=== PATIENT | female | born 1950 | race American Indian/Alaskan Native ===

== ENCOUNTER 2016-10-16 14:03 | Inpatient (IN) | payer MEDICARE ==
[2016-10-16 15:50] LABS: Basophils % (Auto) 0.3 % (0.0-1.8); Eosinophils % (Auto) 0.1 % (0.0-4.3); Hematocrit 39.7 % (30.3-42.9); Hemoglobin 12.9 gm/dl (10.1-14.3); Mean Corpuscular HGB Conc 32 % (30-34); Mean Corpuscular Hemoglobin 30 pg (28-32); Mean Corpuscular Volume 92 fl (79-97); Platelet Count 235 K/mm3 (140-440); Red Blood Count 4.34 M/mm3 (3.65-5.03); Red Cell Distribution Width 14.6 % (13.2-15.2); White Blood Count 6.4 K/mm3 (4.5-11.0)
[2016-10-16 15:57] LABS: BUN/Creatinine Ratio 7.36; Calcium 9.5 mg/dL (8.4-10.2); Chloride 91.9 mmol/L (98-107); Potassium 3.2 mmol/L (3.6-5.0)
[2016-10-16] MEDS ORDERED: NACL 0.9% 500 ML 500 ML IV ONE (16:47)
[2016-10-16] MEDS ORDERED: NACL 0.9% 1000 ML 1,000 ML IV ONE (16:48)
--- NOTE | 2016-10-16 16:54 | Emergency Department Report ---
HPI - General Chief Complaint: Recheck/Abnormal Lab/Rx Time Seen by Provider: 10/16/16 16:37 - HPI HPI: Room 23 The patient is 66-year-old female presenting with chief complaint of acute renal failure. The patient states she had routine labs performed yesterday by her primary physician received a call today stating she was in acute renal failure and that she should come to the ED. The patient admits to episodes of diarrhea 2 days ago. The patient states she had 10-12 episodes of loose stools 2 days ago. Patient denies abdominal pain, shortness of breath or chest pain. Patient missed one episode of nausea and vomiting. Patient denies any history of fever. The patient states she has noticed decreased urinary output over the past 2 days. When asked how she is feeling currently the patient replies she feels "okay." Patient had labs drawn 10/15/2016 the revealed a creatinine of 4.02 mg/dL Location: [see above] Duration: [see above] Quality: [see above] Severity: [see above] Modifying factors: [see above] Context: [see above] Mode of transportation: Unknown ED Past Medical Hx - Past Medical History Hx Hypertension: Yes Additional medical history: hi cholest rheumatic fever - Surgical History Hx Breast Surgery: Yes (partial mastectomy bilat) Additional Surgical History: hysterectomy - Family History Family history: no significant - Social History Smoking Status: Never Smoker Substance Use Type: Alcohol (occasional) - Medications Home Medications: Home Medications Medication Instructions Recorded Confirmed Last Taken Type Anastrozole (Nf) [Arimidex (Nf)] 1 mg PO DAILY 12/01/13 10/16/16 12/01/13 History [place]-3S/Dha/Epa/Fish Oil [Fish 1 each PO DAILY 12/01/13 10/16/16 12/01/13 History Oil EC 1,200 mg Softgel] Simvastatin 20 mg PO QDAY 12/01/13 10/16/16 12/01/13 History Valsartan [Diovan] 80 mg PO DAILY 12/01/13 10/16/16 12/01/13 History ED Review of Systems ROS: Stated complaint: BLOOD WORK / SENT FROM PHYS Other details as noted in HPI Comment: All other systems reviewed and negative Constitutional: denies: chills, fever Eyes: denies: eye pain, eye discharge, vision change ENT: denies: ear pain, throat pain Respiratory: denies: cough, shortness of breath, wheezing Cardiovascular: denies: chest pain, palpitations Endocrine: no symptoms reported Gastrointestinal: diarrhea. denies: abdominal pain, nausea Genitourinary: denies: urgency, dysuria, discharge Musculoskeletal: denies: back pain, joint swelling, arthralgia Skin: denies: rash, lesions Neurological: denies: headache, weakness, paresthesias Psychiatric: denies: anxiety, depression Hematological/Lymphatic: denies: easy bleeding, easy bruising Physical Exam - Physical Exam Vital Signs: Vital Signs 10/16/16 10/16/16 10/16/16 14:43 15:03 15:09 Temperature 98.4 F Pulse Rate 104 H 91 H Respiratory 18 16 17 Rate Blood Pressure 83/53 Blood Pressure [Right] O2 Sat by Pulse 99 99 100 Oximetry 10/16/16 15:10 Temperature 98.0 F Pulse Rate 85 Respiratory 17 Rate Blood Pressure Blood Pressure 99/61 [Right] O2 Sat by Pulse 100 Oximetry Physical Exam: GENERAL: The patient is well-developed well-nourished female lying on stretcher not appear to be in acute distress. [] HEENT: Normocephalic. Atraumatic. Extraocular motions are intact. Patient has moist mucous membranes. NECK: Supple. Trachea midline CHEST/LUNGS: Clear to auscultation. There is no respiratory distress noted. HEART/CARDIOVASCULAR: Regular. There is no tachycardia. There is no gallop rub or murmur. ABDOMEN: Abdomen is soft, nontender. Patient has normal bowel sounds. There is no abdominal distention. SKIN: There is no rash. There is no edema. There is no diaphoresis. NEURO: The patient is awake, alert, and oriented. The patient is cooperative. The patient has normal speech MUSCULOSKELETAL: There is no evidence of acute injury. ED Course Vital Signs 10/16/16 10/16/16 10/16/16 14:43 15:03 15:09 Temperature 98.4 F Pulse Rate 104 H 91 H Respiratory 18 16 17 Rate Blood Pressure 83/53 Blood Pressure [Right] O2 Sat by Pulse 99 99 100 Oximetry 10/16/16 15:10 Temperature 98.0 F Pulse Rate 85 Respiratory 17 Rate Blood Pressure Blood Pressure 99/61 [Right] O2 Sat by Pulse 100 Oximetry - Reevaluation(s) Reevaluation #1: 10/16/16 17:37 Blood pressure is improved to 114/68 after 1 L of normal saline ED Medical Decision Making - Lab Data Result diagrams: 10/16/16 15:19 10/16/16 15:19 Laboratory Tests 10/16/16 10/16/16 15:19 15:19 WBC 6.4 RBC 4.34 Hgb 12.9 Hct 39.7 MCV 92 MCH 30 MCHC 32 RDW 14.6 Plt Count 235 Lymph % (Auto) 22.5 [place] % (Auto) 13.1 H Eos % (Auto) 0.1 Baso % (Auto) 0.3 Lymph # 1.4 [place] # 0.8 Eos # 0.0 Baso # 0.0 Seg Neutrophils % 64.0 Seg Neutrophils # 4.1 Sodium 133 L Potassium 3.2 L Chloride 91.9 L Carbon Dioxide 19 L Anion Gap 25 BUN 42 H Creatinine 5.7 H Estimated GFR 9 BUN/Creatinine Ratio 7.36 Glucose 99 Calcium 9.5 Troponin T 0.011 - Radiology Data Radiology results: report reviewed (CT abdomen and pelvis), image reviewed (CT abdomen and pelvis) CT abdomen and pelvis (read by radiologist)-no specific sclerotic focus in the medial left iliac wing may be a bone island. The differential includes a blastic lesion given margins are regular. Small hiatal hernia and otherwise normal-appearing stomach. Slight ascending colon diverticulosis. - Differential Diagnosis acute renal failure, enteritis, dehydration Critical care attestation.: If time is entered above; I have spent that time in minutes in the direct care of this critically ill patient, excluding procedure time. ED Disposition Clinical Impression: Acute renal failure, Diarrhea, Dehydration Disposition: OP ADMITTED IP TO THIS HOSP Is pt being admited?: Yes Does the pt Need Aspirin: No Condition: Serious Referrals: PRIMARY CARE, [Primary Care Provider] - 3-5 Days Time of Disposition: 17:39 (hospitalist paged)
--- NOTE | 2016-10-16 17:34 | Cat Scan Report ---
FINAL REPORT EXAM: CT ABDOMEN PELVIS WO CON HISTORY: acute renal failure, diarrhea TECHNIQUE: CT examination of the ABDOMEN without contrast CT exanimation of the PELVIS without contrast PRIORS: None. FINDINGS: 12 mm irregularly marginated nonspecific small sclerotic focus in the left medial iliac wing may be a bone island. The differential includes a blastic lesion. Normal noncontrast appearance of the liver, gallbladder, adrenals, pancreas, and spleen. Normal caliber abdominal aorta with minimal calcified atherosclerotic plaque. Normal caliber IVC. Normal-appearing kidneys and ureters. No evidence of renal mass. No renal calculus, hydronephrosis, or ureteral calculus. Small hiatal hernia. Otherwise normal appearing stomach and duodenum. No small bowel distention in the abdomen and pelvis. No pelvic free fluid. Uterus not visualized. Normal-appearing urinary bladder and adnexa. No definite rectal or sigmoid colon abnormality. No gross ascites, free air, or colonic distention. Normal-appearing cecum, terminal ileum, and appendix. Slight ascending colon diverticulosis IMPRESSION: Nonspecific sclerotic focus in the medial left iliac wing may be a bone island. The differential includes a blastic lesion given margins are irregular Small hiatal hernia in otherwise normal-appearing stomach Slight ascending colon diverticulosis
--- NOTE | 2016-10-16 17:50 | Admit Criteria Form ---
Admission Criteria Documentation: RENAL FAILURE, ACUTE Clinical Indications for Admission to Inpatient Care ( Place 'X' for any and all applicable criteria): Admission is indicated for ALL (if I & II) or III of the following [A](2)(3)(4)( 5)(6)(7): [X]I. Acute renal failure as indicated by ANY ONE of the following: [X]a) A 3-fold rise in serum creatinine from baseline []b) Serum creatinine greater than 4 mg/dL (354 micromoles/L) with an acute rise greater than 0.5 mg/dL (44.2 micromoles/L) [ ]c) Reduction of more than 75% in estimated glomerular filtration rate from baseline [ ]d) Estimated glomerular filtration rate less than 35 mL/min/1.73m2 (0.59mL/sec/1.73m2)in a child up to 18 years of age [ ]e) Anuria indicated by ALL of the following: [ ]i) Adequate volume status [ ]ii) Cessation of urine output indicated by ANY ONE of the following: [ ]1) Urine output less than 0.3 mL/kg/hr for 24 hours [ ]2) Anuria (urine output less than 0.1 mL/kg/ hr) for 12 hours [ ] II. Renal failure cannot be managed in an outpatient setting or observational care setting as indicating by ANY ONE of the following: [ ]a) Altered mental status that is severe or persistent [ ]b) Volume overload or Respiratory distress (eg, clinically significant pulmonary edema) that is severe or persistent [ ]c) Cardiac arrhythmias of immediate concern [ ]d) Hemodynamic instability [ ]e) Clinically significant electrolyte abnormality that requires inpatient care (eg, hyperkalemia with severe ECG findings)[B] [ ]f) Clinically significant metabolic abnormality (eg, acidosis) that is severe or persistent [ ]g) Acute treatment of renal failure (eg, renal replacement therapy) not feasible or appropriate in observational care setting [ ]h) Clinical situation too unstable or uncertain (eg, inadequate urine output, ongoing decline in renal function, etiology unclear) [ ]i) Necessary support and caregiver ability to comply with outpatient treatment cannot be arranged in observation care timeframe (eg, within 24 hours) [ ]j) Other significant finding or clinical condition judged not to be within scope of observation care [ ]III.General contraindications and/or Inappropriate clinical situations for Observational Care in patients with Acute Renal Failure, when ANY ONE of the following is required: [ ]a) Prediction of prolongation of LOS based on ANY ONE of the following may be considered as a contraindication for observational care 2, 3, 4, 5, 6, 7, 8 , 9, 10, 11 [ ]i) Age > 65 yrs. [ ]ii) Patient arriving by ambulance [ ]iii) Patient with high acuity [ ]iv) Patient requiring vital sign monitoring [ ]v) Patient on IV medication [ ]b) Systolic blood pressures 180mmHg 3,12 [ ]c) Patient with altered mental status including delirium and other alteration of consciousness, (3) [ ]d) Patient whose discharge disposition will be to a long-term home or rehabilitation home should not be managed in Emergency Department Observation Unit. CMS rule requires 3 days hospital stay before such placement.3,13 [ ]e) Patient with failure to thrive due to broad array of etiologies 3, 16,17 [ ]f) Inability to ambulate 3,14 Extended stay beyond goal length of stay may be needed for(13) [ ]a) Continuing uremic complications [ ]b) Care for comorbidities [ ]c) acute renal failure [ ]d) Need for dialysis The original [employer] content created by [email or web address] has been revised. The portions of the content which have been revised are identified through the use of italic text or in bold, and [facility] [employer] [place] has neither reviewed nor approved the modified material. All other unmodified content is copyright [email or web address]. Please see references footnoted in the original [facility] 2016 Admission Criteria Met: Yes
[2016-10-16] MEDS ORDERED: DULCOLAX PR PRN (18:56)
[2016-10-16] MEDS ORDERED: MILK OF MAGNESIA PO PRN (18:56)
[2016-10-16] MEDS ORDERED: TYLENOL PO PRN (18:56)
[2016-10-16] MEDS ORDERED: NORCO 5/325 PO PRN (18:56)
[2016-10-16] MEDS ORDERED: ZOFRAN IV PRN (18:56)
--- NOTE | 2016-10-16 19:07 | History and Physical Report ---
History of Present Illness Date of examination: 10/16/16 Date of admission: 10/16/16 17:44 Chief complaint: weakness History of present illness: 66-year-old in usual state of health until she visited primary care doctor. Chemistries obtain an show creatinine to be 4.0. Patient states prior to this she gives a history of having diarrhea approximately a stool every 2 hours. Watery stool every 2 hours. Decreased by mouth intake. Upon presentation patient was found to be hypotensive as well. An additional chemistry was obtain and creatinine was then 5. Patient was then admitted for acute renal failure. Patient states she did not feel bad at all just some diarrhea a little weakness prior to going to the physician. Patient's primary care physician is Dr. San. Patient was really going there for her routine physical in which blood works obtain an had these findings. Patient denies any history of fever chills no nausea vomiting. No prior history of renal failure or renal problems. Important to note patient other chemistries were within normal limits. At present patient is alert oriented does not feel bad very comfortable. She also stated when she was having the diarrhea prior to the blood work she was having cramping of the lower extremity as well. Past History Past Medical History: hypertension, hyperlipidemia, renal failure. denies: acute OR, atrial fib, arrhythmia, anemia, arthritis, CAD, cancer, COPD, dialysis , DVT, ESRD, heart failure, hepatitis, HIV/AIDS, hyperthyroidism, liver disease , migraines, pulmonary embolism, seizures, stroke Past Surgical History: hysterectomy, mastectomy, tonsillectomy, Other Social history: lives with family, full code. denies: smoking, alcohol abuse, prescription drug abuse, IV drug use Family history: no significant family history Medications and Allergies Allergies Allergy/AdvReac Type Severity Reaction Status Date / Time No Known Allergies Allergy Verified 12/01/13 21:05 Home Medications Medication Instructions Recorded Confirmed Last Taken Type Anastrozole (Nf) [Arimidex (Nf)] 1 mg PO DAILY 12/01/13 10/16/16 12/01/13 History [place]-3S/Dha/Epa/Fish Oil [Fish 1 each PO DAILY 12/01/13 10/16/16 12/01/13 History Oil EC 1,200 mg Softgel] Simvastatin 20 mg PO QDAY 12/01/13 10/16/16 12/01/13 History Valsartan [Diovan] 80 mg PO DAILY 12/01/13 10/16/16 12/01/13 History Active Meds: Active Medications Acetaminophen (Tylenol) 650 mg PO Q4H PRN PRN Reason: Pain MILD(1-3)/Fever >100.5/AVELAR Acetaminophen/Hydrocodone Bitart ([place] 5/325) 2 each PO Q6H PRN PRN Reason: Pain, Moderate (4-6) Bisacodyl (Dulcolax) 10 mg SD QDAY PRN PRN Reason: Constipation unrelieved by MOM Enoxaparin Sodium (Lovenox) 30 mg SUB-Q QDAY MARIANELA Famotidine (Pepcid) 20 mg IV BID MARIANELA Miscellaneous Medication (Anastrozole (Nf)) 1 mg PO DAILY [facility] Review of Systems Constitutional: fatigue, weakness, no weight loss, no weight gain, no fever, no chills, no sweats, no night sweats, no anorexia, no malaise, no lethargy, no chronic headaches, no poor appetite, no chronic pain Ears, nose, mouth and throat: no ear pain, no ear discharge, no tinnitis, no decreased hearing, no nose pain, no nasal congestion, no nasal discharge, no sinus pressure, no bleeding gums, no mouth pain, no sore throat, no swelling in mouth, no post-nasal drip Breasts: deferred Cardiovascular: no chest pain, no orthopnea, no palpitations, no rapid/ irregular heart beat, no edema, no syncope, no lightheadedness, no shortness of breath, no dyspnea on exertion, no paroxysmal nocturnal dyspnea, no claudication , no phlebitis, no high blood pressure, no leg edema, no decreased exercise tolerance Respiratory: no cough, no cough with sputum, no excessive sputum, no hemoptysis , no shortness of breath, no wheezing, no pleurisy, no pain, no respiratory infections, no home oxygen Gastrointestinal: no abdominal pain, no vomiting Genitourinary Female: no dyspareunia, no menorrhagia, no dysuria, no stress incontinence, no post void dribbling, no mixed incontinence, no vaginal itching , no genital sores, no mood problems, no difficulties conceiving Rectal: no pain, no incontinence, no bleeding Musculoskeletal: no neck stiffness, no neck pain, no shooting arm pain, no arm numbness/tingling, no low back pain, no shooting leg pain, no redness of joints , no hot joints, no myalgias Integumentary: deferred, wounds, no rash, no pruritis, no redness, no sores, no jaundice, no boils, no blisters, no dryness, no brittle nails, no hirsutism, no foot/leg ulcers Neurological: no head injury, no transient paralysis, no numbness, no seizures, no aphasia, no memory loss, no changes in smell/taste, no sensory deficit, no double vision, no loss of vision, no hearing difficulties, no burning pain, no paralysis Psychiatric: no anxiety, no memory loss, no change in sleep habits, no insomnia , no change in appetite, no change in libido, no suicidal ideation, no anhedonia , no difficulties concentrating, no confusion, no irritability, no sadness/ tearfullness Endocrine: no polyphagia, no polydipsia, no polyuria, no nocturia, no excessive sweating, no deepening of the voice, no thyroid mass, no high blood sugars, no other Hematologic/Lymphatic: no lymphedema, no thrombophilia, no other Allergic/Immunologic: no angioedema, no gluten intolerance, no seasonal allergies, no other Exam - Constitutional Vitals: Temp Pulse Resp BP Pulse Ox 98.0 F 86 14 114/68 100 10/16/16 15:10 10/16/16 17:31 10/16/16 17:31 10/16/16 17:31 10/16/16 17:31 General appearance: Present: no acute distress, well-nourished - EENT Eyes: Present: PERRL ENT: hearing intact, clear oral mucosa - Neck Neck: Present: supple, normal ROM - Respiratory Respiratory effort: normal Respiratory: bilateral: CTA - Cardiovascular Heart Sounds: Present: S1 & S2. Absent: rub, click - Extremities Extremities: pulses symmetrical, No edema Peripheral Pulses: within normal limits - Abdominal General gastrointestinal: Present: soft, non-tender, non-distended, normal bowel sounds Female genitourinary: Present: normal - Integumentary Integumentary: Present: clear, warm, dry - Musculoskeletal Musculoskeletal: gait normal, strength equal bilaterally - Psychiatric Psychiatric: appropriate mood/affect, intact judgment & insight - Neurologic Neurologic: CNII-XII intact, moves all extremities Results - Labs CBC & Chem 7: 10/16/16 15:19 10/16/16 15:19 Labs: Laboratory Last Values WBC 6.4 K/mm3 (4.5-11.0) 10/16/16 15:19 RBC 4.34 M/mm3 (3.65-5.03) 10/16/16 15:19 Hgb 12.9 gm/dl (10.1-14.3) 10/16/16 15:19 Hct 39.7 % (30.3-42.9) 10/16/16 15:19 MCV 92 fl (79-97) 10/16/16 15:19 MCH 30 pg (28-32) 10/16/16 15:19 MCHC 32 % (30-34) 10/16/16 15:19 RDW 14.6 % (13.2-15.2) 10/16/16 15:19 Plt Count 235 K/mm3 (140-440) 10/16/16 15:19 Lymph % (Auto) 22.5 % (13.4-35.0) 10/16/16 15:19 [place] % (Auto) 13.1 % (0.0-7.3) H 10/16/16 15:19 Eos % (Auto) 0.1 % (0.0-4.3) 10/16/16 15:19 Baso % (Auto) 0.3 % (0.0-1.8) 10/16/16 15:19 Lymph # 1.4 K/mm3 (1.2-5.4) 10/16/16 15:19 [place] # 0.8 K/mm3 (0.0-0.8) 10/16/16 15:19 Eos # 0.0 K/mm3 (0.0-0.4) 10/16/16 15:19 Baso # 0.0 K/mm3 (0.0-0.1) 10/16/16 15:19 Seg Neutrophils % 64.0 % (40.0-70.0) 10/16/16 15:19 Seg Neutrophils # 4.1 K/mm3 (1.8-7.7) 10/16/16 15:19 Sodium 133 mmol/L (137-145) L 10/16/16 15:19 Potassium 3.2 mmol/L (3.6-5.0) L 10/16/16 15:19 Chloride 91.9 mmol/L (98-107) L 10/16/16 15:19 Carbon Dioxide 19 mmol/L (22-30) L 10/16/16 15:19 Anion Gap 25 mmol/L 10/16/16 15:19 BUN 42 mg/dL (7-17) H 10/16/16 15:19 Creatinine 5.7 mg/dL (0.7-1.2) H 10/16/16 15:19 Estimated GFR 9 ml/min 10/16/16 15:19 BUN/Creatinine Ratio 7.36 % 10/16/16 15:19 Glucose 99 mg/dL (65-100) 10/16/16 15:19 Calcium 9.5 mg/dL (8.4-10.2) 10/16/16 15:19 Troponin T 0.011 ng/mL (0.00-0.029) 10/16/16 15:19 - Imaging and Cardiology EKG: image reviewed Assessment and Plan Advance Directives: Yes VTE prophylaxis?: Chemical Plan of care discussed with patient/family: Yes - Patient Problems (1) Acute renal failure Current Visit: Yes Status: Acute Qualifiers: Acute renal failure type: A Plan to address problem: Acute renal failure exact etiology unknown at this particular time. At the top my differential is ATN versus vasomotor nephropathy. Upon presentation patient was hypotensive was also on losartan/ARB with underlying diarrhea and intravascular volume depletion. I hope that the decrease volume to kidney and ROBERT inhibitor plays the major role in her renal failure. We will treat patient aggressively with IV volume hydration. We'll also obtain stool studies patient is still having some degree of diarrhea however the markedly improved. We'll obtain C. difficile ova parasites. Also document the number of stools provided. Follow-up chemistry in the a.m. as well as nephrology consult. We will avoid all nephrotoxic agents. We'll hold antihypertensives. Patient is hypotensive therefore will not give anything in observe at this particular time. (2) Dehydration Current Visit: Yes Status: Acute Plan to address problem: Dehydration hypotension most likely secondary to volume loss GI losses. No evidence of infection at this particular time. (3) Diarrhea Current Visit: Yes Status: Acute Qualifiers: Diarrhea type: D Plan to address problem: Obtain stool studies for diarrhea. Treat with Lomotil when necessary if necessary.
[2016-10-16] MEDS: PEPCID IV SCH (22:02)
[2016-10-17] MEDS: NACL 0.9% 1000 ML 1,000 ML IV SCH ×2 (00:16→13:36)
[2016-10-17 05:29] LABS: Albumin 3.8 g/dL (3.9-5); Albumin/Globulin Ratio 1.4 %; BUN/Creatinine Ratio 13.43; Bilirubin,Total 0.3 mg/dL (0.1-1.2); Calcium 8.7 mg/dL (8.4-10.2); Chloride 103.3 mmol/L (98-107); Potassium 3.3 mmol/L (3.6-5.0); Total Protein 6.6 g/dL (6.3-8.2)
--- NOTE | 2016-10-17 07:50 | Ultrasound Report ---
ULTRASOUND RENAL BILATERAL HISTORY: Renal failure. TECHNIQUE: transabdominal ultrasound with color Doppler interrogation. FINDINGS: The right kidney measures 9.6 x 4.0 x 3.8cm. Right renal cortex: 1.4cm. The left kidney measures 9.6 x 4.8 x 3.5cm. Left renal cortex: 1.4cm. The kidneys are normal size, contour and position. There is increased renal parenchymal echotexture bilaterally. Corticomedullary differentiation is preserved. No evidence for cystic disease, mass, nephrolithiasis, hydronephrosis or perinephric fluid. The views of the bladder and the region of the ureters appear normal. IMPRESSION: Renal parenchymal disease.
[2016-10-17] MEDS: LOVENOX SUB-Q SCH (09:37)
[2016-10-17] MEDS: PEPCID IV SCH (09:38)
[2016-10-17] MEDS ORDERED: K-DUR PO ONE ×3 (14:00→16:00)
--- NOTE | 2016-10-17 16:43 | Consultation ---
History of Present Illness - Reason for Consult Consult date: 10/17/16 acute renal failure, chronic renal failure, hyponatremia, hypokalemia Requesting physician: MILLA SCHUSTER - History of Present Illness This is a 66 yo AAF with past medical history of hypertension, hyperlipidemia who presents to [facility] ER after patient was sent from her PCP for abnormal kidney function with Cr around 4mg/dl. In ER patient was found to be hypotensive with BP as low as 80/50s mmHg. patient reports having multiple watery diarrhea episodes on Thursday, almost every 2 hours, which then subsided by Thu. however patient felt weak and tired, along with leg cramps and went to PCP. Pt denies fever, chills, nausea, vomiting, abdominal pain, dysuria, rash, SOB, palpitations, CP. Denies any history of kidney disease in the past, also no recent NSAIDs use or IV contrast exposure reported. pt takes valsartan for BP control, reports compliance with all her meds. Past History Past Medical History: hypertension, hyperlipidemia, renal failure. denies: acute [place], atrial fib, arrhythmia, anemia, arthritis, CAD, cancer, COPD, dialysis , DVT, ESRD, heart failure, hepatitis, HIV/AIDS, hyperthyroidism, liver disease , migraines, pulmonary embolism, seizures, stroke Past Surgical History: hysterectomy, mastectomy, tonsillectomy, Other Social history: lives with family, full code. denies: smoking, alcohol abuse, prescription drug abuse, IV drug use Family history: no significant family history Medications and Allergies Allergies Allergy/AdvReac Type Severity Reaction Status Date / Time No Known Allergies Allergy Verified 12/01/13 21:05 Home Medications Medication Instructions Recorded Confirmed Last Taken Type Anastrozole (Nf) [Arimidex (Nf)] 1 mg PO DAILY 12/01/13 10/16/16 12/01/13 History Converse-3S/Dha/Epa/Fish Oil [Fish 1 each PO DAILY 12/01/13 10/16/16 12/01/13 History Oil EC 1,200 mg Softgel] Simvastatin 20 mg PO QDAY 12/01/13 10/16/16 12/01/13 History Valsartan [Diovan] 80 mg PO DAILY 12/01/13 10/16/16 12/01/13 History Active Meds: Active Medications Acetaminophen (Tylenol) 650 mg PO Q4H PRN PRN Reason: Pain MILD(1-3)/Fever >100.5/AVELAR Acetaminophen/Hydrocodone Bitart (Pamplico 5/325) 2 each PO Q6H PRN PRN Reason: Pain, Moderate (4-6) Bisacodyl (Dulcolax) 10 mg WA QDAY PRN PRN Reason: Constipation unrelieved by MOM Enoxaparin Sodium (Lovenox) 30 mg SUB-Q QDAY MARIANELA Last Admin: 10/17/16 09:37 Dose: 30 mg Famotidine (Pepcid) 10 mg PO BID [facility] Sodium Chloride (Nacl 0.9% 1000 Ml) 1,000 mls @ 125 mls/hr IV DIRECT MARIANELA Last Admin: 10/17/16 13:36 Dose: 125 mls/hr Magnesium Hydroxide (Milk Of Magnesia) 30 ml PO Q4H PRN PRN Reason: Constipation Miscellaneous Medication (Anastrozole (Nf)) 1 mg PO DAILY [facility] Ondansetron HCl (Zofran) 4 mg IV Q8H PRN PRN Reason: N/V unrelieved by Reglan Review of Systems All systems: negative Constitutional: fatigue, weakness, malaise, poor appetite Gastrointestinal: diarrhea Exam - Vital Signs Vital signs: Vital Signs Temp Pulse Resp BP Pulse Ox 98.4 F 104 H 18 83/53 99 10/16/16 14:43 10/16/16 14:43 10/16/16 14:43 10/16/16 14:43 10/16/16 14:43 - General Appearance General appearance: well-developed, well-nourished, appears stated age EENT: ATNC, PERRL, mucous membranes moist Neck: Present: neck supple Respiratory: Clear to Ascultation Heart: regular, S1S2 Gastrointestinal: Present: normal, normoactive bowel sounds Integumentary: no rash, other (no edema ) Neurologic: no focal deficit, alert and oriented x3, strength 5/5, CN 3-12 intact Psychiatric: mood/affect appropriate, cooperative Results - Lab Results 10/16/16 15:19 10/17/16 03:57 Most recent lab results Calcium 8.7 mg/dL (8.4-10.2) 10/17/16 03:57 Laboratory Tests 10/16/16 10/17/16 15:19 03:57 Glucose 92 Calcium 8.7 Total Bilirubin 0.3 AST 40 ALT 40 Alkaline Phosphatase 65 Troponin T 0.011 Total Protein 6.6 Albumin 3.8 L Albumin/Globulin Ratio 1.4 - Image Kidney/bladder ultrasound: report reviewed (increased renal parenchymal echotexture noted b/l) Assessment and Plan - Patient Problems (1) Acute kidney failure with tubular necrosis Current Visit: Yes Status: Acute Plan to address problem: acute kidney injury most likely due to acute tubular necrosis in the setting of hypotension/volume depletion. BP improved with IV NS. Patient remains non-oliguric, reports frequent urination since being on IVF. Renal US shows evidence of echogenic kidneys b/l, consistent with possible underlying CKD. IV hydration with NS at 125ml/hr Will check UA, urine lytes, urine protein/cr ratio cont supportive care for CRIS/ATN, avoid nephrotoxins, NSAID, IV contrast, keep MAP >65mmHg Will monitor electrolytes and renal parameters closely and make further recommendations. Thank you for the consultation will follow pt closely with you. (2) Hypokalemia Current Visit: Yes Status: Acute Plan to address problem: will supplement with susana bernard (3) Hyponatremia Current Visit: Yes Status: Acute Plan to address problem: likely hypovolemic hyponatremia. expect to improve with IV NS (4) Dehydration Current Visit: Yes Status: Acute Plan to address problem: cont IV NS (5) Diarrhea Current Visit: Yes Status: Acute Qualifiers: Diarrhea type: D Plan to address problem: resolved (6) Hypotension Current Visit: Yes Status: Acute Qualifiers: Hypotension type: H Trimester: T Plan to address problem: BP improved with IV NS boluses. continue maintenance IV NS
--- NOTE | 2016-10-17 19:23 | Progress Note ---
Assessment and Plan Assessment and plan: --Hyperkalemia Replenish per protocol and monitor levels --Acute renal failure secondary to acute tubular necrosis Renal function gradually improving, avoid nephrotoxic medications Closely monitor renal function, IV hydration Nephrology evaluation and recommendations noted and appreciated --Diarrhea probably viral Significantly improved, we'll check C. difficile --DVT prophylaxis with Lovenox Closely monitor renal function Possible discharge home tomorrow if stable Plan of care discussed with the patient and the family member at the bedside History Interval history: Patient Seen and evaluated medical records reviewed No new events reported by the nursing staff The patient's diarrhea significantly improved, her renal function improving slowly creatinine trending down Patient is alert awake oriented 3 not in acute distress Vital signs reviewed Hospitalist Physical - Constitutional Vitals: Temp Pulse Resp BP Pulse Ox 98.4 F 75 15 105/68 98 10/17/16 14:00 10/17/16 14:00 10/17/16 14:00 10/17/16 14:00 10/17/16 14:00 General appearance: Present: no acute distress, well-nourished - EENT Eyes: Present: PERRL, EOM intact - Neck Neck: Present: supple, normal ROM - Respiratory Respiratory effort: normal Respiratory: negative: rales, rhonchi, wheezing - Cardiovascular Rhythm: regular Heart Sounds: Present: S1 & S2 - Extremities Extremities: no ischemia, pulses intact, pulses symmetrical Peripheral Pulses: within normal limits - Abdominal General gastrointestinal: soft, non-tender, non-distended, normal bowel sounds - Integumentary Integumentary: Present: clear, warm - Psychiatric Psychiatric: appropriate mood/affect, cooperative - Neurologic Neurologic: CNII-XII intact, moves all extremities Results - Labs CBC & Chem 7: 10/16/16 15:19 10/17/16 03:57 Labs: Laboratory Last Values WBC 6.4 K/mm3 (4.5-11.0) 10/16/16 15:19 RBC 4.34 M/mm3 (3.65-5.03) 10/16/16 15:19 Hgb 12.9 gm/dl (10.1-14.3) 10/16/16 15:19 Hct 39.7 % (30.3-42.9) 10/16/16 15:19 MCV 92 fl (79-97) 10/16/16 15:19 MCH 30 pg (28-32) 10/16/16 15:19 MCHC 32 % (30-34) 10/16/16 15:19 RDW 14.6 % (13.2-15.2) 10/16/16 15:19 Plt Count 235 K/mm3 (140-440) 10/16/16 15:19 Lymph % (Auto) 22.5 % (13.4-35.0) 10/16/16 15:19 [place] % (Auto) 13.1 % (0.0-7.3) H 10/16/16 15:19 Eos % (Auto) 0.1 % (0.0-4.3) 10/16/16 15:19 Baso % (Auto) 0.3 % (0.0-1.8) 10/16/16 15:19 Lymph # 1.4 K/mm3 (1.2-5.4) 10/16/16 15:19 [place] # 0.8 K/mm3 (0.0-0.8) 10/16/16 15:19 Eos # 0.0 K/mm3 (0.0-0.4) 10/16/16 15:19 Baso # 0.0 K/mm3 (0.0-0.1) 10/16/16 15:19 Seg Neutrophils % 64.0 % (40.0-70.0) 10/16/16 15:19 Seg Neutrophils # 4.1 K/mm3 (1.8-7.7) 10/16/16 15:19 Sodium 139 mmol/L (137-145) 10/17/16 03:57 Potassium 3.3 mmol/L (3.6-5.0) L 10/17/16 03:57 Chloride 103.3 mmol/L (98-107) 10/17/16 03:57 Carbon Dioxide 19 mmol/L (22-30) L 10/17/16 03:57 Anion Gap 20 mmol/L 10/17/16 03:57 BUN 43 mg/dL (7-17) H 10/17/16 03:57 Creatinine 3.2 mg/dL (0.7-1.2) H 10/17/16 03:57 Estimated GFR 18 ml/min 10/17/16 03:57 BUN/Creatinine Ratio 13.43 % 10/17/16 03:57 Glucose 92 mg/dL (65-100) 10/17/16 03:57 Calcium 8.7 mg/dL (8.4-10.2) 10/17/16 03:57 Total Bilirubin 0.3 mg/dL (0.1-1.2) 10/17/16 03:57 AST 40 units/L (5-40) 10/17/16 03:57 ALT 40 units/L (7-56) 10/17/16 03:57 Alkaline Phosphatase 65 units/L (35-129) 10/17/16 03:57 Troponin T 0.011 ng/mL (0.00-0.029) 10/16/16 15:19 Total Protein 6.6 g/dL (6.3-8.2) 10/17/16 03:57 Albumin 3.8 g/dL (3.9-5) L 10/17/16 03:57 Albumin/Globulin Ratio 1.4 % 10/17/16 03:57
[2016-10-17] MEDS: NON-FORMULARY (Anastrozole (Nf) 1 MG) PO SCH (20:48)
[2016-10-17] MEDS: PEPCID PO SCH (22:32)
[2016-10-18] MEDS: NACL 0.9% 1000 ML 1,000 ML IV SCH ×2 (00:41→07:29)
[2016-10-18 07:20] LABS: Anion Gap 15 mmol/L; Blood Urea Nitrogen 16 mg/dL (7-17); Calcium 8.4 mg/dL (8.4-10.2); Carbon Dioxide 20 mmol/L (22-30); Chloride 110.4 mmol/L (98-107); Glucose 102 mg/dL (65-100); Potassium 3.6 mmol/L (3.6-5.0); Sodium 142 mmol/L (137-145)
--- NOTE | 2016-10-18 08:57 | Progress Note ---
Assessment and Plan - Patient Problems (1) Acute kidney failure with tubular necrosis Current Visit: Yes Status: Acute Plan to address problem: acute kidney injury most likely due to prerenal azotemia/possible ATN in the setting of hypotension/volume depletion. BP improved with IV NS. Renal function almost normalized Renal US shows evidence of echogenic kidneys b/l, c/w possible underlying CKD. pt with good po intake, can d/c IVF. cont supportive care for CRIS/ATN, avoid nephrotoxins, NSAID, IV contrast, keep MAP >65mmHg Stable for discharge from renal stand point with outpatient f/u. (2) Hypokalemia Current Visit: Yes Status: Acute Plan to address problem: resolved will supplement with klor con (3) Hyponatremia Current Visit: Yes Status: Acute Plan to address problem: likely hypovolemic hyponatremia. resolved with IV NS (4) Dehydration Current Visit: Yes Status: Acute Plan to address problem: resolved (5) Diarrhea Current Visit: Yes Status: Acute Qualifiers: Diarrhea type: D Plan to address problem: resolved (6) Hypotension Current Visit: Yes Status: Acute Qualifiers: Hypotension type: H Trimester: T Plan to address problem: BP improved with IVF. Subjective Date of service: 10/18/16 Principal diagnosis: CRIS Interval history: patient awake, alert, in NAD Objective - Vital Signs Vital signs: Vital Signs - 12hr 10/17/16 10/18/16 10/18/16 22:00 00:23 04:58 Temperature 98.3 F 97.9 F Pulse Rate [ Apical] Pulse Rate [ 74 From Monitor] Pulse Rate [ 69 Left Radial] Pulse Rate [ 72 Right Radial] Respiratory 18 18 18 Rate Respiratory Rate [ Generalized] Blood Pressure 121/65 96/54 [Left Radial Artery] O2 Sat by Pulse 100 98 Oximetry 10/18/16 10/18/16 08:00 08:13 Temperature 98 F Pulse Rate [ 74 71 Apical] Pulse Rate [ From Monitor] Pulse Rate [ Left Radial] Pulse Rate [ Right Radial] Respiratory 18 20 Rate Respiratory 20 Rate [ Generalized] Blood Pressure 128/72 [Left Radial Artery] O2 Sat by Pulse 98 Oximetry - General Appearance General appearance: well-developed, well-nourished, appears stated age EENT: ATNC, PERRL, mucous membranes moist Neck: no JVD Respiratory: Present: Clear to Ascultation Cardiology: regular, S1S2 Gastrointestinal: normal, normoactive bowel sounds Integumentary: no rash, other (no edema ) Neurologic: no focal deficit, alert and oriented x3, strength 5/5, CN 3-12 intact Psychiatric: mood/affect appropriate, cooperative - Lab 10/16/16 15:19 10/18/16 06:12 Most recent lab results Calcium 8.4 mg/dL (8.4-10.2) 10/18/16 06:12
[2016-10-18] MEDS: LOVENOX SUB-Q SCH (09:12)
[2016-10-18] MEDS: PEPCID PO SCH (09:13)
[2016-10-18] MEDS: NON-FORMULARY (Anastrozole (Nf) 1 MG) PO SCH (09:13)
--- NOTE | 2016-10-18 09:25 | Discharge Summary ---
Providers - Providers Date of Admission: 10/16/16 17:44 Date of discharge: 10/18/16 Attending physician: CARLOS JENNINGS 10/16/16 18:56 Consult to Physician [CONS] Routine Consulting Provider: ABIOLA GRIFFITH Reason For Exam: renal failure Place consult to:: dr. griffith Notified:: . Was contact made?: No Time called:: 19:00 Primary care physician: DIRECT SALES PROFESSIONAL Hospitalization Condition: Serious Disposition: DISCHARGED TO HOME OR SELFCARE Core Measure Documentation - Palliative Care Palliative Care/ Comfort Measures: Not Applicable - Core Measures Any of the following diagnoses?: none Exam - Constitutional Vitals: Temp Pulse Resp BP Pulse Ox 98 F 71 20 128/72 98 10/18/16 08:00 10/18/16 08:13 10/18/16 08:13 10/18/16 08:00 10/18/16 08:00 General appearance: Present: no acute distress, well-nourished - EENT Eyes: Present: PERRL, EOM intact - Neck Neck: Present: supple, normal ROM - Respiratory Respiratory effort: normal Respiratory: negative: rales, rhonchi, wheezing - Cardiovascular Rhythm: regular Heart Sounds: Present: S1 & S2 - Extremities Extremities: no ischemia, pulses intact, pulses symmetrical Peripheral Pulses: within normal limits - Abdominal General gastrointestinal: Present: soft, non-tender, non-distended, normal bowel sounds - Integumentary Integumentary: Present: clear, warm - Musculoskeletal Musculoskeletal: strength equal bilaterally - Psychiatric Psychiatric: appropriate mood/affect, cooperative - Neurologic Neurologic: CNII-XII intact, moves all extremities Plan Activity: no restrictions Diet: regular Follow up with: PRIMARY CARE, [Primary Care Provider] - 3-5 Days
[2016-10-18 11:24] VITALS: BP 120/69
[2016-10-18] MEDS ORDERED: PEPCID PO SCH (22:00)
[2016-10-19] MEDS ORDERED: LOVENOX SUB-Q SCH (10:00)
== END 2016-10-18 11:57 | disposition home or self-care (01) | DRG 683 ==
LOC: ED 14:03 → 3A 17:44
PROVIDERS: ADMIT Internal Medicine; ATTEND Internal Medicine
DX: N17.0 Acute kidney failure with tubular necrosis (principal); I13.0 Hypertensive heart and chronic kidney disease with heart failure and stage 1 through stage 4 chronic kidney disease, or unspecified chronic kidney disease; E87.1 Hypo-osmolality and hyponatremia; E86.0 Dehydration; I95.9 Hypotension, unspecified; E78.5 Hyperlipidemia, unspecified; D64.9 Anemia, unspecified; M19.90 Unspecified osteoarthritis, unspecified site; I25.10 Atherosclerotic heart disease of native coronary artery without angina pectoris; J44.9 Chronic obstructive pulmonary disease, unspecified; E05.90 Thyrotoxicosis, unspecified without thyrotoxic crisis or storm; G43.909 Migraine, unspecified, not intractable, without status migrainosus; I50.9 Heart failure, unspecified; Z86.718 Personal history of other venous thrombosis and embolism; Z90.13 Acquired absence of bilateral breasts and nipples; Z90.710 Acquired absence of both cervix and uterus; Z99.2 Dependence on renal dialysis; Z86.711 Personal history of pulmonary embolism; Z90.89 Acquired absence of other organs
CPT/HCPCS: 36415; 74176; 76770; 80048; 80053; 84484; 85025; J1650; J7030

== ENCOUNTER 2016-11-03 09:23 | Outpatient (CLI) | payer MEDICARE ==
--- NOTE | 2016-11-03 16:11 | Nuclear Medicine Report ---
Pulmonary bone scan: Examination performed at 25 mCi technetium 99 MDP. History: Lesion on pelvic bone. Findings: Uniform activity is noted in the calvarium, cervical, thoracic and lumbar spine. Normal activity at pelvis and hips . Normal activity in the kidneys, bladder upper and lower extremity. Impression: Essentially negative whole-body bone scan.
== END 2016-11-03 09:24 | disposition home or self-care (01) ==
LOC: NM 09:23
PROVIDERS: ATTEND Internal Medicine
DX: M89.8X8 Other specified disorders of bone, other site (principal)
CPT/HCPCS: 78306; A9503

== ENCOUNTER 2018-10-21 08:35 | Outpatient (CLI) | payer MEDICARE ==
--- NOTE | 2018-10-22 09:34 | Magnetic Resonance Report ---
BILATERAL BREAST MRI WITHOUT AND WITH CONTRAST: 10/21/18 08:35:00 CLINICAL: Personal history of bilateral breast cancer. Status post right partial mastectomy in 2011 and left partial mastectomy in 2007. The patient is taking Arimidex. COMPARISON:10/13/18 mammogram which demonstrates a new outer asymmetry on the right CC view. TECHNIQUE: Axial 1.0-mm T1 without, axial high resolution 2.0-mm T2 and axial 1.0-mm dynamic Vibrant high-resolution postcontrast T1 fat saturation sequences on a 1.5 Karley magnet. The examination was performed with an 8 channel dedicated [place] breast coil. Post processing with CAD and subtraction was performed on an SEAT 4a workstation. 14.0 cc of Multihance was injected without incident for the contrast portion of the exam. Consent was obtained prior to the administration of the contrast. FINDINGS: Right: Minimal background parenchymal enhancement. No mass or suspicious enhancement. Minimal postsurgical scar. No suspicious right axillary or right internal mammary lymph nodes. A few right axillary lymph nodes have benign morphology. Left: Minimal background parenchymal enhancement. The left breast is smaller than the right and the left nipple is retracted. No mass or suspicious enhancement. A few left axillary lymph nodes have benign morphology. No suspicious left axillary or left internal mammary lymph nodes. IMPRESSION: Negative study status post bilateral partial mastectomy. No evidence of disease recurrence. BI-RADS 2 - - Benign
== END 2018-10-21 08:36 | disposition home or self-care (01) ==
LOC: SPVIMAG 08:35
PROVIDERS: ATTEND Surgery
DX: D36.0 Benign neoplasm of lymph nodes (principal); I10 Essential (primary) hypertension; M19.90 Unspecified osteoarthritis, unspecified site; Z85.3 Personal history of malignant neoplasm of breast; Z90.710 Acquired absence of both cervix and uterus
CPT/HCPCS: A9577; C8908; 77049

== ENCOUNTER 2020-05-16 10:39 | Outpatient (CLI) | payer MEDICARE ==
--- NOTE | 2020-05-16 15:22 | Magnetic Resonance Report ---
BILATERAL BREAST MRI WITH AND WITHOUT CONTRAST CLINICAL INFORMATION/INDICATION: Patient has history of bilateral breast cancer status post bilateral partial mastectomy. Patient has no current complaints. TECHNICAL: Coronal STIR, axial T1 and T2-weighted fat sat images were obtained precontrast. Gadoliniu m-based contrast was injected intravenously and serial axial T1 weighted images with fat saturation w ere obtained. 3-D MIP projections, kinetic analysis and subtraction imaging was utilized to evaluate. A dedicated 8-channel breast coil was used for image acquisition. COMPARISON: Prior mammogram 10/19/2019 and breast MRI 10/21/2018 FINDINGS: Right breast: There is heterogeneously dense fibroglandular tissue. There is mild background parenchy mal enhancement. There is stable benign postsurgical change seen in the right breast. No suspicious a reas of enhancement identified in the right breast. There is no right axillary or internal mammary ad enopathy. Left breast: There is heterogeneously dense fibroglandular tissue. There is mild background parenchym al enhancement. There is stable benign postsurgical change seen in the left breast. No suspicious are as of enhancement identified in the left breast. There is no left axillary or internal mammary adenop athy. IMPRESSION: 1. Stable benign postlumpectomy change seen in both breasts. No suspicious MRI abnormality identified in either breast. Follow up recommendation: Back to schedule. BI-RADS Category 2: Benign. Signer Name: Dena Garcia MD Signed: 05/16/2020 3:17 PM Workstation Name: [id number]
== END 2020-05-16 10:40 | disposition home or self-care (01) ==
LOC: SPVIMAG 10:39
PROVIDERS: ATTEND Surgery
DX: R92.8 Other abnormal and inconclusive findings on diagnostic imaging of breast (principal); Z85.3 Personal history of malignant neoplasm of breast
CPT/HCPCS: A9577; C8908; 77049

== ENCOUNTER 2020-10-22 08:11 | Outpatient (CLI) | payer MEDICARE ==
--- NOTE | 2020-10-22 08:46 | Mammography Report ---
DIGITAL SCREENING MAMMOGRAM WITH CAD, 10/22/2020 INDICATION: Routine screening mammography. TECHNIQUE: Digital bilateral 2D mammography was obtained in the craniocaudal and mediolateral obliq ue projections. This examination was interpreted with the benefit of Computer-Aided Detection analysi s. COMPARISON: 10/19/2019 FINDINGS: Breast Density: There are scattered areas of fibroglandular density. There is no evidence of dominant mass, suspicious calcifications or architectural distortion in eithe r breast. Post therapy change left breast. IMPRESSION: Follow up recommendation: Routine yearly BI-RADS Category 2: Benign. A "normal" or negative report should not discourage follow up or biopsy of a clinically significant f inding. A written summary of these findings will be mailed to the patient. The patient will be entered into a mammography reporting system which will generate a reminder letter for the patient's next appointmen t at the appropriate interval. The [employer] recommends yearly mammograms starting at age 40 and continuing as l ry as a woman is in good health. Breast MRI is recommended for women with an approximate 20-25% or greater lifetime risk of breast cancer, including women with a strong family history of breast or ova esperanza cancer or who have been treated for Hodgkin's disease. Signer Name: Manish Rodriguez MD Signed: 10/22/2020 8:41 AM Workstation Name: [employer]
== END 2020-10-22 08:12 | disposition home or self-care (01) ==
LOC: SPVWC 08:11
PROVIDERS: ATTEND Surgery
DX: Z12.31 Encounter for screening mammogram for malignant neoplasm of breast (principal); N64.89 Other specified disorders of breast
CPT/HCPCS: 77067

== ENCOUNTER 2022-02-26 14:07 | Outpatient (CLI) | payer MEDICARE ==
--- NOTE | 2022-02-28 16:23 | Mammography Report ---
DIGITAL SCREENING MAMMOGRAM WITH CAD, 02/26/2022 CLINICAL INFORMATION / INDICATION: Routine screening mammography. TECHNIQUE: Digital bilateral 2D mammography was obtained in the craniocaudal and mediolateral obliqu e projections. This examination was interpreted with the benefit of Computer-Aided Detection analysis . COMPARISON: 10/22/2020, 10/19/2019 FINDINGS: Breast Density: There are scattered areas of fibroglandular density. No dominant mass, suspicious calcifications, or architectural distortion in either breast. Scarring is noted bilaterally with similar benign calcifications and an unchanged inner right breast biopsy clip. IMPRESSION: No mammographic evidence of malignancy. Follow up recommendation: Routine yearly screening mammogram. - The ACR recommends yearly screening MRI in patients with a personal history of breast cancer who madison ve dense fibroglandular tissue as well in patients who were diagnosed with breast cancer under the ag e of 50. BI-RADS Category 2: BENIGN. A "normal" or negative report should not discourage follow up or biopsy of a clinically significant f inding. A written summary of these findings will be mailed to the patient. The patient will be entered into a mammography reporting system which will generate a reminder letter for the patient's next appointmen t at the appropriate interval. The [employer] recommends yearly mammograms starting at age 40 and continuing as l ry as a woman is in good health. Breast MRI is recommended for women with an approximate 20-25% or greater lifetime risk of breast cancer, including women with a strong family history of breast or ova esperanza cancer or who have been treated for Hodgkin's disease. Signer Name: Celestino Zimmerman MD Signed: 02/28/2022 4:19 PM Workstation Name: [id number]
== END 2022-02-26 14:08 | disposition home or self-care (01) ==
LOC: SPVWC 14:07
PROVIDERS: ATTEND Surgery
DX: Z12.31 Encounter for screening mammogram for malignant neoplasm of breast (principal)
CPT/HCPCS: 77067